=== PATIENT | female | born 1955 | race Caucasian/White ===

== ENCOUNTER 2017-07-17 18:02 | Emergency (ER) | payer BC, OTHER ==
[~2017-07-17] VITALS: Ht 160 cm; Wt 77.0 kg
[2017-07-18 01:30] VITALS: BP 151/84
[2017-07-18] MEDS ORDERED: KETOROLAC 60MG/2ML VIAL IM ONE (01:30)
== END 2017-07-18 05:13 | disposition home or self-care (01) ==
LOC: ER 18:02
DX: S50.01XA Contusion of right elbow, initial encounter (principal); S50.02XA Contusion of left elbow, initial encounter; I10 Essential (primary) hypertension; E11.9 Type 2 diabetes mellitus without complications; E78.00 Pure hypercholesterolemia, unspecified; W01.0XXA Fall on same level from slipping, tripping and stumbling without subsequent striking against object, initial encounter; Y93.89 Activity, other specified; Y92.89 Other specified places as the place of occurrence of the external cause; Y99.8 Other external cause status
CPT/HCPCS: 73030; 73070; 96372; 99284; J1885

== ENCOUNTER 2022-06-06 16:57 | Emergency (ER) | payer MEDICARE, OTHER ==
[~2022-06-06] VITALS: Ht 160 cm; Wt 68.0 kg
[2022-06-06 17:01] VITALS: BP 140/85
[2022-06-06] MEDS ORDERED: IBUPROFEN 400MG TABLET PO ONE (19:30)
[2022-06-06] MEDS ORDERED: BACL-141 MT (21:39)
[2022-06-06] MEDS ORDERED: IBUP-2028 MT (21:39)
== END 2022-06-06 22:33 | disposition home or self-care (01) ==
LOC: ER 16:57
DX: M54.12 Radiculopathy, cervical region (principal); E11.9 Type 2 diabetes mellitus without complications; E78.00 Pure hypercholesterolemia, unspecified; I10 Essential (primary) hypertension; Z98.51 Tubal ligation status
CPT/HCPCS: 99284

== ENCOUNTER 2024-10-02 10:24 | Emergency (ER) | payer MEDICARE ==
[~2024-10-02] VITALS: Ht 160 cm; Wt 69.0 kg
[~2024-10-02 10:24] MED LIST: BACL-141 MT; IBUP-2028 MT
[2024-10-02 10:44] VITALS: BP 131/59; O2SAT 97
[2024-10-02] MEDS: ACETAMINOPHEN 325MG TABLET PO ONE (11:58)
[2024-10-02 12:01] VITALS: PULSE 72; RESP 16; TEMP 36.50292; O2SAT 98
== END 2024-10-02 12:01 | disposition home or self-care (01) ==
LOC: ER 10:24
DX: S09.90XA Unspecified injury of head, initial encounter (principal); S50.02XA Contusion of left elbow, initial encounter; E11.9 Type 2 diabetes mellitus without complications; W01.0XXA Fall on same level from slipping, tripping and stumbling without subsequent striking against object, initial encounter; Y93.89 Activity, other specified; Y92.89 Other specified places as the place of occurrence of the external cause; Y99.8 Other external cause status
CPT/HCPCS: 73080; 99284

== ENCOUNTER 2025-04-17 13:43 | Emergency (ER) | payer MEDICARE ==
[~2025-04-17] VITALS: Ht 160 cm; Wt 72.6 kg
[2025-04-17 13:48] VITALS: O2SAT 100
[2025-04-17] MEDS: ACETAMINOPHEN 500MG TABLET PO ONE (14:50)
[2025-04-17 16:50] VITALS: BP 107/52; PULSE 79; RESP 21; TEMP 37; O2SAT 100
[2025-04-17] MEDS ORDERED: LIDO700A30 TP (16:51)
[2025-04-17] MEDS ORDERED: ACET-2708 MT (16:51)
== END 2025-04-17 17:05 | disposition home or self-care (01) ==
LOC: ER 13:43
DX: M25.551 Pain in right hip (principal); I10 Essential (primary) hypertension; E11.9 Type 2 diabetes mellitus without complications; Z98.890 Other specified postprocedural states; Z79.899 Other long term (current) drug therapy
CPT/HCPCS: 73502; 99283

== ENCOUNTER 2025-10-20 20:05 | Emergency (ER) | payer MEDICARE ==
[~2025-10-20] VITALS: Ht 162.6 cm; Wt 70.0 kg
[~2025-10-20 20:05] MED LIST changes: +ACET-2708 MT; +LIDO700A30 TP
[2025-10-20 20:19] VITALS: O2SAT 99
[2025-10-20] MEDS ORDERED: [UNRECOGNIZED DRUG - OTHER] BOTHNSTRLS (23:29)
[2025-10-20] MEDS ORDERED: FLUT9.9S BOTHNSTRLS (23:29)
[2025-10-20] MEDS ORDERED: BENZ100C86 MT (23:29)
[2025-10-20 23:51] VITALS: BP 131/63; PULSE 77; RESP 18; TEMP 36.7; O2SAT 97
== END 2025-10-20 23:51 | disposition home or self-care (01) ==
LOC: ER 20:05
DX: J30.9 Allergic rhinitis, unspecified (principal); E11.9 Type 2 diabetes mellitus without complications; I10 Essential (primary) hypertension; Z79.899 Other long term (current) drug therapy
CPT/HCPCS: 71045; 99283